=== PATIENT | male | born 1950 | race Caucasian/White ===

== ENCOUNTER → 2020-01-20 09:29 | Outpatient (BNVA) | payer MEDICARE, OTHER, SELFPAY | PROVIDERS: Family Provider Internal Medicine; PCP Internal Medicine; Visit Provider Urology | DX: R39.9 Unspecified symptoms and signs involving the genitourinary system (principal); R97.20 Elevated prostate specific antigen [PSA] | CPT/HCPCS: 81001; 84153 ==

== ENCOUNTER 2021-05-10 12:22 | Outpatient (RCR) | payer MEDICARE, OTHER, SELFPAY | END 2021-05-24 23:59 | disposition home or self-care (01) | LOC: SPT 12:22 | PROVIDERS: PCP Internal Medicine; Referring Provider Orthopaedic Surgery; Visit Provider Orthopaedic Surgery | DX: S46.091D Other injury of muscle(s) and tendon(s) of the rotator cuff of right shoulder, subsequent encounter (principal); X58.XXXD Exposure to other specified factors, subsequent encounter | CPT/HCPCS: 97110; 97161 ==

== ENCOUNTER 2021-05-25 06:00 | Outpatient (RCR) | payer MEDICARE, OTHER, SELFPAY | END 2021-06-21 23:59 | disposition home or self-care (01) | LOC: SPT 06:00 | PROVIDERS: PCP Internal Medicine; Referring Provider Orthopaedic Surgery; Visit Provider Orthopaedic Surgery | DX: S46.091D Other injury of muscle(s) and tendon(s) of the rotator cuff of right shoulder, subsequent encounter (principal); X58.XXXD Exposure to other specified factors, subsequent encounter | CPT/HCPCS: 97110; 97150 ==

== ENCOUNTER → 2021-06-21 13:42 | Outpatient (BNVA) | payer MEDICARE, OTHER, SELFPAY | PROVIDERS: PCP Internal Medicine; Visit Provider Urology | DX: R97.20 Elevated prostate specific antigen [PSA] (principal); R39.9 Unspecified symptoms and signs involving the genitourinary system | CPT/HCPCS: 81003; 84153 ==

== ENCOUNTER 2021-06-22 06:00 | Outpatient (RCR) | payer MEDICARE, OTHER, SELFPAY | END 2021-07-22 23:59 | disposition home or self-care (01) | LOC: SPT 06:00 | PROVIDERS: PCP Internal Medicine; Referring Provider Orthopaedic Surgery; Visit Provider Orthopaedic Surgery | DX: S46.091D Other injury of muscle(s) and tendon(s) of the rotator cuff of right shoulder, subsequent encounter (principal); X58.XXXD Exposure to other specified factors, subsequent encounter | CPT/HCPCS: 97110 ==

== ENCOUNTER 2021-09-23 16:03 | Outpatient (CLI) | payer MEDICARE, OTHER, SELFPAY ==
--- NOTE | 2021-09-23 | XR_ITS ---
WS: [id number] SACRUM TECHNIQUE: 3 views of the sacrum and coccyx CLINICAL INFORMATION: COCCYX PAIN COMPARISON: None. FINDINGS: Slight retrolisthesis L4 on L5 measuring 7 mm Grade 1 anterolisthesis L5 on S1 measuring 5 mm with chronic spondylolysis.. Moderate facet arthropat hy L4-L5 and L5-S1. Osteopenia. Pelvic phleboliths. Normal pubic rami. Mild degenerative arthritis ursula th hips. Mild degenerative arthritis both sacroiliac joints. Sacrum and coccyx slightly rotated on th e lateral view. Considering rotation sacrococcygeal junction appears normal. No acute appearing sacra l fractures. Soft tissue edema overlying the coccyx. If continued pain recommend CT for further evalu ation XR/XR sacrum coccyx min 2V [id number] IMPRESSION: Considering rotation sacrococcygeal junction appears normal. No acute appearing coccyx fractures. Soft tissue edema overlying the coccyx. If continued pain re commend CT for further evaluation.
== END 2021-09-23 16:04 | disposition home or self-care (01) ==
LOC: RADOUTREAD 16:07
PROVIDERS: PCP Internal Medicine; Visit Provider Nurse Practitioner
DX: M53.3 Sacrococcygeal disorders, not elsewhere classified (principal); M43.06 Spondylolysis, lumbar region
CPT/HCPCS: 72220

== ENCOUNTER 2022-01-03 11:04 | Outpatient (CLI) | payer MEDICARE, OTHER, SELFPAY | END 2022-01-03 11:05 | disposition home or self-care (01) | LOC: LAB 11:08 | PROVIDERS: PCP Internal Medicine; Visit Provider Urology | DX: R97.20 Elevated prostate specific antigen [PSA] (principal); N40.1 Benign prostatic hyperplasia with lower urinary tract symptoms; N13.8 Other obstructive and reflux uropathy; R39.9 Unspecified symptoms and signs involving the genitourinary system | CPT/HCPCS: 36415; 51741; 51798; 84153; 99213 ==

== ENCOUNTER → 2022-01-17 10:23 | Outpatient (BNVA) | payer MEDICARE, OTHER, SELFPAY | PROVIDERS: PCP Internal Medicine; Visit Provider Urology | DX: R39.9 Unspecified symptoms and signs involving the genitourinary system (principal); R97.20 Elevated prostate specific antigen [PSA]; N40.1 Benign prostatic hyperplasia with lower urinary tract symptoms; N13.8 Other obstructive and reflux uropathy | CPT/HCPCS: 81003 ==

== ENCOUNTER → 2022-02-09 07:33 | Outpatient (BNVA) | payer MEDICARE, OTHER, SELFPAY | PROVIDERS: PCP Internal Medicine; Visit Provider Otolaryngology | DX: H60.543 Acute eczematoid otitis externa, bilateral (principal) | CPT/HCPCS: 99203 ==

== ENCOUNTER 2023-11-11 06:10 | Inpatient (IN) | payer MEDICARE, SELFPAY ==
[2023-11-11] VITALS (41 sets, daily range): BP systolic 96–152; BP diastolic 63–94; PULSE 57–128; RESP 14–30; TEMP 36.4–37.2; O2SAT 90–98; BMI 33.0; BMI 34.4
--- NOTE | 2023-11-11 06:14 | XRR_ITS ---
PROCEDURE INFORMATION: Exam: XR Chest Exam date and time: 11/11/2023 6:29 AM Age: 73 years old Clinical indication: Dyspnea; Patient HX: Afib heartrate over 100 TECHNIQUE: Imaging protocol: Radiologic exam of the chest. Views: 1 view. COMPARISON: CR XR chest 2V* [id number] 03/05/2021 9:36 AM FINDINGS: Lungs: Unremarkable. No consolidation. Pleural spaces: Unremarkable. No pleural effusion. No pneumothorax. Heart/Mediastinum: Unremarkable. No cardiomegaly. Bones/joints: Unchanged mild scoliosis with mild and moderate multilevel spondylosis. XR/XR chest 1V portable [id number] IMPRESSION: No acute disease.
--- NOTE | 2023-11-11 06:14 | ECG_ITS ---
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 Measurements Intervals [place] Rate: 120 P: 0 TN: 0 QRS: -57 QRSD: 130 T: 86 QT: 363 QTc: 513 Interpretive Statements ATRIAL FIBRILLATION WITH RAPID VENTRICULAR RESPONSE LEFT AXIS DEVIATION [QRS AXIS < -30] MODERATE INTRAVENTRICULAR CONDUCTION DELAY [105+ ms QRS DURATION, 80+ ms Q/S IN V1/V2, NO Q AND 60+ ms R IN I/aVL/V5/V6] MODERATE VOLTAGE CRITERIA FOR LVH, CONSIDER NORMAL VARIANT [MEETS CRITERIA IN ONE OF: R(aVL), S(V1), R(V5), R(V5/V6)+S(V1)] NONSPECIFIC ST & T-WAVE ABNORMALITY No previous ECG available for comparison Electronically Signed On 11-11-2023 9:04:32 CDT by Thuan Valenzuela M.D. [id number]
[2023-11-11 06:27] LABS: Basophils % 0.6 %; Eosinophils # 0.2 10^3/uL (0.0-0.8); Eosinophils % 2.6 %; Hematocrit 46.2 % (37-53); Lymphocytes # 1.6 10^3/uL (0.8-4.8); Lymphocytes % 23.9 %; Mean Corpuscular HGB Conc 33.1 g/dL (30-55); Mean Corpuscular Hemoglobin 32.2 pg (27-33); Mean Corpuscular Volume 97.3 fl (82-101); Mean Platelet Volume 9.1 fL (7.4-10.4); Monocytes # 0.9 10^3/uL (0.2-0.9); Neutrophils # 3.84 10^3/uL (1.8-7.7); Neutrophils % 58.7 %; Nucleated Red Blood Cells % 0 %; Platelet Count 236 10^3/cmm (157-399); Red Blood Count 4.75 10^6/uL (3.85-5.65); Red Cell Distribution Width 12.1 % (12.1-15.1); White Blood Count 6.54 10^3/uL (3.29-11.43)
[2023-11-11] MEDS: dilTIAZem 100 MG in sodium chloride 0.9% (add-van) 100 ML IV (06:37)
[2023-11-11] MEDS: dilTIAZem 5 mg/mL SDV 5 mL 20 MG IVP (06:37)
[2023-11-11 06:46] LABS: Troponin(5th) Baseline 12 ng/L (0-15)
[2023-11-11 06:55] LABS: Alanine Aminotransferase 20 U/L (0-41); Albumin Level 4.1 g/dL (3.5-5.2); Alkaline Phosphatase 86 U/L (40-130); Anion Gap 16.1 (5-19); Aspartate Amino Transferase 19 U/L (0-40); Blood Urea Nitrogen 15 mg/dL (8-23); Calcium 9.3 mg/dL (8.5-10.5); Carbon Dioxide 26 mmol/L (22-29); Chloride 103 mmol/L (98-107); Creatinine Clr Calc Pharmacy 100.9734; Globulin 2.6 g/dL (1.3-4.6); Glucose 128 mg/dL (65-115); Osmolality Calculated 294 mOsm/kg (285-295); Potassium 4.1 mmol/L (3.5-5.1); Sodium 141 mmol/L (136-145); Thyroid Stimulating Hormone 3.89 uIU/mL (0.27-4.20); Total Bilirubin 0.4 mg/dL (0.15-1.2); Total Protein 6.7 g/dL (6.6-8.7)
--- NOTE | 2023-11-11 06:59 | ED_ITS ---
HPI - Arrhythmia/Palpitations 2 General: Chief Complaint: Arrhythmia/Palpitations Stated Complaint: irregular heatbeat, refer dr choudhury Time Seen by Provider: 11/11/23 06:13 History of Present Illness: 73-year-old male who [facility] with a rapid heart rate. Patient has a known history of atrial fibrillation has been relatively well- controlled and I took him off his Xarelto several years ago. He is on flecainide and metoprolol he does take the flecainide scheduled. He states that beginning last night his rate increased and has been persistent since then. He denies any chest pain. No orthopnea no shortness of breath Onset (ago): hour(s) Arrhythmia history: atrial fibrillation Treatments prior to arrival: beta-carlos and other (Flecainide) Review of Systems 2 Const: Denies: fever(s) or chills Card: Reports: palpitations, irregular heart rhythm and dyspnea on exertion; Denies: chest pain, edema, swelling of feet/ankles or orthopnea Resp: Denies: dyspnea GI: Denies: abdominal pain : Denies: dysuria, urinary frequency or urinary urgency Musc: Denies: neck pain or back pain Skin/Breast: Denies: rash PFSH ED 2 PFSH: Medical History Dyslipidemia BPH w urinary obs/LUTS Hypercholesteremia HTN (hypertension) A-fib Elevated PSA Lower urinary tract symptoms (LUTS) Surgical History H/O shoulder surgery right Hx of arthroscopy of knee Family History Father , AT AGE 56 CAD (coronary artery disease) Mother , AT AGE 72 BLOOD CLOT IN THE LUNGS Pneumonia Social History Smoking and tobacco/nicotine status: never used tobacco/nicotine Alcohol intake: never Substance/Drug Use: never Adopted: No Caregiver/support person: No Lives independently: No Household members: spouse Marital status: Current occupational status: retired Physical Exam 2 Const: COMMON NORMALS: no acute distress GENERAL APPEARANCE: cooperative and comfortable ORIENTATION/CONSCIOUSNESS: Yes awake, Yes oriented to person, Yes oriented to place and Yes oriented to time HENMT: COMMON NORMALS: normocephalic, atraumatic and hearing grossly normal bilaterally HEAD & SCALP: normocephalic and atraumatic Resp: COMMON NORMALS: normal respiratory effort, No retractions, No use of accessory muscles and clear to auscultation bilaterally AUSCULTATION: clear to auscultation bilaterally Cardio: COMMON NORMALS: No murmurs present (Cardio) RATE: tachycardic R HYTHM: abnormal rhythm irregularly irregular GI: COMMON NORMALS: Soft to palpation and No hepatosplenomegaly present A USCULTATION: Yes normoactive bowel sounds PALPATION: Yes Soft to palpation, No Tenderness to palpation present (GI), No Guarding due to palpation present (GI) and Yes No hepatosplenomegaly present Extremity: COMMON NORMALS: normal to inspection, capillary refill normal, no clubbing, cyanosis or edema, no calf tenderness and no pedal edema Neuro: SENSORIUM/ORIENTATION: Yes oriented to person, Yes oriented to place and Yes oriented to time Skin: COMMON NORMALS: no rashes or lesions noted GENERAL SKIN EXAM: no rashes or lesions noted Course 2 Vital Signs: Vital signs: Vital Signs Temperature 98.9 F 11/11/23 06:12 Pulse Rate 106 H 11/11/23 09:00 Respiratory Rate 17 11/11/23 07:30 Blood Pressure 142/94 11/11/23 09:00 Pulse Oximetry 94 11/11/23 09:00 Oxygen Delivery Me thod Room Air 11/11/23 09:43 MDM - Arrhythmia/Palpitations Medical Decision Making A-fib with RVR patient is been taking his regular medication he took his flecainide this morning. In the room his bottle states that he is on Toprol succinate. I gave him another 25 of tartrate for now. He is titrated up to 10 of Cardizem he is just under control and his rate is long as he does not attempt any activity. Discussed with hospitalist will admit continue Cardizem drip first dose of Lovenox given. Lab Data 11/11/23 06:22 11/11/23 06:22 Radiology Impressions Chest X-Ray 11/11/23 06:14 IMPRESSION: No acute disease. Laboratory Results WBC 6.54 10^3/uL (3.29-11.43) 11/11/23 06: RBC 4.75 10^6/uL (3.85-5.65) 11/11/23 06:22 Hgb 15.30 g/dL (11.27-16.99) 11/11/23 06:22 Hct 46.2 % (37-53) 11/11/23 06:22 MCV 97.3 fl (82-101) 11/11/23 06:22 MCH 32.2 pg (27-33) 11/11/23 06:22 MCHC 33.1 g/dL (30-55) 11/11/23 06:22 RDW 12.1 % (12.1-15.1) 11/11/23 06:22 Plt Count 236 10^3/cmm (157-399) 11/11/23 06:22 MPV 9.1 fL (7.4-10.4) 11/11/23 06:22 Neut % (Auto) 58.7 % 11/11/23 06:22 Lymph % (Auto) 23.9 % 11/11/23 06:22 [place] % (Auto) 13.0 % 11/11/23 06:22 Eos % (Auto) 2.6 % 11/11/23 06:22 Baso % (Auto) 0.6 % 11/11/23 06:22 Neut # (Auto) 3.84 10^3/uL (1.8-7.7) 11/11/23 06:22 Lymph # (Auto) 1.6 10^3/uL (0.8-4.8) 11/11/23 06:22 [place] # (Auto) 0.9 10^3/uL (0.2-0.9) 11/11/23 06:22 Eos # (Auto) 0.2 10^3/uL (0.0-0.8) 11/11/23 06:22 Baso # (Auto) 0.0 10^3/uL (0.0-0.1) 11/11/23 06:22 Nucleated RBC % (auto) 0 % 11/11/23 06:22 Nucleated RBCs # 0.0 /100WBC 11/11/23 06:22 Sodium 141 mmol/L (136-145) 11/11/23 06:22 Potassium 4.1 mmol/L (3.5-5.1) 11/11/23 06:22 Chloride 103 mmol/L (98-107) 11/11/23 06:22 Carbon Dioxide 26 mmol/L (22-29) 11/11/23 06:22 Anion Gap 16.1 (5-19) 11/11/23 06:22 BUN 15 mg/dL (8-23) 11/11/23 06:22 Creatinine 0.8 mg/dL (0.7-1.2) 11/11/23 06:22 GFR Calculation Not Reportable 11/11/23 06:22 Glucose 128 mg/dL (65-115) H 11/11/23 06:22 Calculated Osmolality 294 mOsm/kg (285-295) 11/11/23 06:22 Calcium 9.3 mg/dL (8.5-10.5) 11/11/23 06:22 Total Bilirubin 0.4 mg/dL (0.15-1.2) 11/11/23 06:22 AST 19 U/L (0-40) 11/11/23 06:22 ALT 20 U/L (0-41) 11/11/23 06:22 Alkaline Phosphatase 86 U/L (40-130) 11/11/23 06:22 Troponin T Baseline 12 ng/L (0-15) 11/11/23 06:22 Troponin T 120 Minute 10.65 ng/L (0-15) 11/11/23 08:23 Delta Troponin T -1.35 ABS# (0-10) L 11/11/23 08:23 Total Protein 6.7 g/dL (6.6-8.7) 11/11/23 06:22 Albumin 4.1 g/dL (3.5-5.2) 11/11/23 06:22 Globulin 2.6 g/dL (1.3-4.6) 11/11/23 06:22 TSH 3.89 uIU/mL (0.27-4.20) 11/11/23 06:22 All radiology interpretation(s) finalized by discharge Discharge Plan Discharge Patient Disposition: Admitted As Inpatient Admit Provider: Walt Barker Clinical Impression: Atrial fibrillation with RVR Condition: Stable Coding Level of Care Code ED [place] Operator for Chg [place]
--- NOTE | 2023-11-11 08:14 | ECG_ITS ---
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 Measurements Intervals [place] Rate: 107 P: 0 MD: 0 QRS: -63 QRSD: 132 T: 89 QT: 379 QTc: 506 Interpretive Statements ATRIAL FIBRILLATION WITH RAPID VENTRICULAR RESPONSE INTRAVENTRICULAR CONDUCTION DELAY [130+ ms QRS DURATION] MODERATE VOLTAGE CRITERIA FOR LVH, CONSIDER NORMAL VARIANT [MEETS CRITERIA IN ONE OF: R(aVL), S(V1), R(V5), R(V5/V6)+S(V1)] POSSIBLE ANTERIOR MYOCARDIAL INFARCTION , PROBABLY OLD [30 ms Q WAVE IN V3/V4, OR R < 0.2 mV IN V4] Compared to ECG 11/11/2023 06:32:36 Myocardial infarct finding now present Left-axis deviation no longer present T-wave abnormality no longer present Electronically Signed On 11-11-2023 9:07:32 CDT by Thuan Valenzuela M.D. [email or web address]/store/OM/[id number]
[2023-11-11 08:49] LABS: Troponin 5 2HR 10.65 ng/L (0-15)
[2023-11-11 09:00] LABS: Troponin 5 2HR Delta -1.35 ABS# (0-10)
[2023-11-11] MEDS: enoxaparin 100 mg/mL Syringe SUBCUT (09:02)
[2023-11-11] MEDS: metoprolol tartrate 25 mg Tablet PO (09:02)
--- NOTE | 2023-11-11 11:30 | P.HP_ITS ---
Providers/Chief Complaint 2 Admitting Physician: Walt Barker DO Primary Care Provider: Gurwinder Barnard DO Chief Complaint: irregular heatbeat, refer dr choudhury History of Present Illness Kwan Crisostomo is a 73 year old male with PMH of A-fib, BPH w/LUTS who presented to ER with rapid heart rate and palpitations. Previous history of well controlled A-fib currently on Flecainide, Metoprolol ER. He is established with Cardiology, Dr. Choudhury in [place]. Has been well controlled for several years. Cards removed him from anticoagulation due to his penitentiary stability. Recent past with few episodes of rapid HR that was short lived. He began to have another episode last night that persisted. He denies chest pain, but did endorse some mild dyspnea with his episode. He states that he did take his medications last night, but no improvement in his symptoms. Presented to ER to be evaluated. In ER, EKG did show Afib with RVR, HR into the 130's. Labs unremarkable aside from glucose of 128. Troponins were negative. CXR showed no acute concerns. Was started on Diltiazem drip and provided an additional dose of metoprolol this morning. Rate did improve to the 90-100 range. BP remained stable. Patient has requested Dr. Valenzuela come to see him and they will discuss starting anticoagulation. He was given a dose of Lovenox this morning in the ER. He was admitted to [facility] on telemetry. Review of Systems 2 General: Reports: 10 or more systems reviewed and unremarkable except in HPI and below Medications/Allergies Home Medications Medication Instructions Recorded Confirmed Last Taken Type aspirin 81 mg capsule 81 mg PO DAILY 11/11/23 11/11/23 11/10/23 18:00 History flecainide 100 mg tablet 100 mg PO Q12H 11/11/23 11/11/23 11/10/23 18:00 History metoprolol succinate 100 mg 50 mg PO DAILY 11/11/23 11/11/23 11/10/23 18:00 History tablet,extended release 24 hr Allergies Allergy/AdvReac Type Severity Reaction Status Date / Time Penicillins Allergy Unknown Unknown Verified 02/09/22 07:56 Sulfa (Sulfonamide Allergy Unknown Unknown Verified 02/09/22 07:56 Antibiotics) PFSH Acute 2 PFSH: Medical History Dyslipidemia BPH w urinary obs/LUTS Hypercholesteremia HTN (hypertension) A-fib Elevated PSA Lower urinary tract symptoms (LUTS) Surgical History H/O shoulder surgery right Hx of arthroscopy of knee Family History Father , AT AGE 56 CAD (coronary artery disease) Mother , AT AGE 72 BLOOD CLOT IN THE LUNGS Pneumonia Social History Smoking and tobacco/nicotine status: never used tobacco/nicotine Alcohol intake: never Substance/Drug Use: never Adopted: No Caregiver/support person: No Lives independently: No Household members: spouse Marital status: Current occupational status: retired Vitals/I&O/Wt Last Vital Signs Temp 98.9 F 11/11/23 06:12 Pulse 106 H 11/11/23 09:00 Resp 17 11/11/23 07:30 BP 142/94 11/11/23 09:00 Pulse Ox 94 11/11/23 09:00 O2 Del Method Room Air 11/11/23 09:43 11/10/23 11/11/23 11/11/23 22:59 06:59 14:59 Intake Total 42.792 / 42.792 Balance 42.792 / 42.792 Weight last 48 hrs Weight 240 lb Weight 230 lb Physical Exam 2 Narrative: General: Cooperative patient in no apparent distress. Well developed. HEENT: Normocephalic, Atraumatic. External ears normal. Nasal passages patent without drainage. MMM. Heart: Irregular rhythm with slight elevated HR. Resp: LCTA. No respiratory distress, no use of accessory muscles. Abd: Soft, non-tender. Non-distended. Extremities: No edema. Skin: No rash or lesions on exposed areas. Neuro: No focal motor or sensory loss. Gait is normal. Data 11/11/23 06:22 11/11/23 06:22 A&P Assessment and plan (1) Atrial fibrillation with RVR: (2) Hyperglycemia: Plan 73 y/o M admitted to [facility] for a-fib with RVR. Cardiology consulted at the request of the patient. Spoke with Dr. Valenzuela who will see the patient this afternoon. Started on Diltiazem drip. HR is currently improving, with rates in the 90-100 range. BP remains stable. Telemetry ordered and monitoring. Labs unremarkable. Troponins negative. Will continue with home metoprolol dose. Will continue Diltiazem drip for now and titrate to oral meds as HR and BP tolerate. Started on Lovenox this morning. He will likely need to resume chronic anticoagulation to reduce risk of VTE event. He will discuss with Cardiology this afternoon. Recheck AM labs. Cardiac diet ordered. He is on Metoprolol Succinate 50mg daily home med. Given additional 25mg this morning. Consider titration of metoprolol for rate control vs. Starting Diltiazem oral. Code Status: Full IVF: none DVT PPx: Lovenox GI PPx: None ABx: None Diet: Cardiac Discharge plan: Home when appropriate. Attestations 2 Medical Necessity Statement*: Patient will need greater than 2 midnight stay for A-fib with RVR, titration of medication to stabilize HR, possible addition of new medication requiring monitoring and restarting anticoagulation, requiring monitoring and labs. Coding Level of Care Code Acute Code for Chg Fwd Moderate MDM includes number and complexity of problems actively addressed during encounter, amount and/or complexity of data reviewed/ordered and described risk of complication, morbidity or mortality of management as documented Diagnoses Atrial fibrillation with RVR I48.91 Hyperglycemia R73.9
--- NOTE | 2023-11-11 12:14 | ECG_ITS ---
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 Measurements Intervals [place] Rate: 72 P: -17 AK: 206 QRS: -50 QRSD: 123 T: 76 QT: 446 QTc: 491 Interpretive Statements SINUS RHYTHM LEFT AXIS DEVIATION [QRS AXIS < -30] MODERATE INTRAVENTRICULAR CONDUCTION DELAY [105+ ms QRS DURATION, 80+ ms Q/S IN V1/V2, NO Q AND 60+ ms R IN I/aVL/V5/V6] MODERATE T-WAVE ABNORMALITY, CONSIDER ANTERIOR ISCHEMIA [-0.1+ mV T-WAVE IN V3/V4] Compared to ECG 11/11/2023 08:27:20 Left-axis deviation now present T-wave abnormality now present Possible ischemia now present Atrial fibrillation no longer present Myocardial infarct finding no longer present Electronically Signed On 11-12-2023 7:13:02 CDT by Thuan Valenzuela M.D. [id number]
[2023-11-11 12:43] LABS: Troponin 5 6HR 10.06 ng/L (0-15)
[2023-11-11 13:11] LABS: Troponin 5 6HR Delta -1.94 ng/L (0-12)
--- NOTE | 2023-11-11 13:44 | PC.NURSE ---
received pt into room 112-2 from er via stretcher at 0920.report received.pt is alert and awake and oriented x 4.denies pain at present.afib on monitor...hr low 100's.on cardizem drip at 12.5 mg/hr.oriented to room environment.instructed to notify staff for any chest pain,sob,or for any concern at all.pt verb understanding of instructions.
--- NOTE | 2023-11-11 13:46 | PC.NURSE ---
pt converted to nsr at 1115.heart rate 50's.cardizem drip turned off.
--- NOTE | 2023-11-11 16:17 | PM.CONSULT ---
Providers/Reason For Consult Consulting Physician/Specialty*: Cardiovascular medicine Reason for Consult*: Atrial fibrillation Requesting Physician: Hospitalist Attending Physician: Walt Barker DO Primary Care Provider: Gurwinder Barnard DO History of Present Illness History of Present Illness Kwan Crisostomo is a 73 year old male with a history of atrial fibrillation. He takes flecainide and metoprolol at home. For the last couple years he feels like he has been in sinus rhythm. So much so that a couple years ago he was taken off of his anticoagulant. This was in the form of Xarelto. In the last couple of weeks he has noticed some fluttering and then last night he noticed that his heart rate was fast and irregular. It lasted all night so he came into the emergency room early this morning. He was given a dose of p.o. beta-carlos and then placed on intravenous Cardizem. At about 1130 this morning he converted to sinus rhythm. His troponins are negative and his labs are negative. The third EKG at 1337 hrs. reveals sinus rhythm. He was given Lovenox this morning. He is interested in going home. Review of Systems Narrative: Review of systems is negative Medications/Allergies Home Medications Medication Instructions Recorded Confirmed Last Taken Type aspirin 81 mg capsule 81 mg PO DAILY 11/11/23 11/11/23 11/10/23 18:00 History flecainide 100 mg tablet 100 mg PO Q12H 11/11/23 11/11/23 11/10/23 18:00 History metoprolol succinate 100 mg 50 mg PO DAILY 11/11/23 11/11/23 11/10/23 18:00 History tablet,extended release 24 hr Allergies Allergy/AdvReac Type Severity Reaction Status Date / Time Penicillins Allergy Unknown Unknown Verified 02/09/22 07:56 Sulfa (Sulfonamide Allergy Unknown Unknown Verified 02/09/22 07:56 Antibiotics) Current Medications Generic Name Dose Route Start Last Admin Trade Name Freq PRN Reason Stop Dose Admin Diltiazem HCl 100 mg/ Sodium 100 mls @ 0 mls/hr 11/11/23 06:30 11/11/23 11:15 Chloride IV 0 mg/hr .Q0M VIVEK 0 mls/hr Titration Protocol Per Protocol PFSH Acute PFSH: Medical History (Updated 11/11/23 @ 16:20 by Thuan aVlenzuela MD) Dyslipidemia BPH w urinary obs/LUTS Hypercholesteremia HTN (hypertension) A-fib Elevated PSA Lower urinary tract symptoms (LUTS) Surgical History H/O shoulder surgery right Hx of arthroscopy of knee Family History Father , AT AGE 56 CAD (coronary artery disease) Mother , AT AGE 72 BLOOD CLOT IN THE LUNGS Pneumonia Social History Smoking and tobacco/nicotine status: never used tobacco/nicotine Alcohol intake: never Substance/Drug Use: never Adopted: No Caregiver/support person: No Lives independently: No Household members: spouse Marital status: Current occupational status: retired Vitals/I&O/Wt Last Vital Signs Temp 98.9 F 11/11/23 06:12 Pulse 73 11/11/23 13:40 Resp 18 11/11/23 13:40 BP 99/63 11/11/23 13:40 Pulse Ox 93 11/11/23 13:40 O2 Del Method Room Air 11/11/23 12:00 11/11/23 11/11/23 11/11/23 06:59 14:59 22:59 Intake Total 42.792 / 42.792 Output Total 250 / 250 Balance -207.208 / -207.208 Weight last 48 hrs Weight 240 lb Weight 230 lb Physical Exam Narrative: GENERAL: In general he looks comfortable HEENT: Exam within normal limits. NECK: Supple without jugular vein distention. The carotid upstroke is normal without bruits. BACK: Exam normal. LUNGS: Clear. HEART: Regular rate and rhythm. ABDOMEN: Benign without organomegaly or tenderness. EXTREMITIES: No edema. NEUROLOGIC: Exam normal. SKIN: Unremarkable. Data 11/11/23 06:22 11/11/23 06:22 A&P Assessment and plan (1) Atrial fibrillation with RVR: (2) BPH w urinary obs/LUTS: (3) Dyslipidemia: (4) HTN (hypertension): Plan He is back in sinus rhythm. I had a long discussion with the patient and his about anticoagulants and about antiarrhythmics. He has chosen to stay on the flecainide and the beta-carlos at the same doses. I strongly recommended he go back to a factor Xa inhibitor. He wants to just go back to the Xarelto. I recommend 20 mg daily. I think we can give him another dose of Lovenox before he goes home this evening and then start him back on Xarelto 20 mg daily. Since it is the weekend we should give him 2 or 3 tablets until he can get to a pharmacy first part of the week. He does have an travel freight and passenger agent in [place] with whom he will follow-up. Consult Attestations Medical Necessity Statement: Hospitalization for atrial fibrillation with a rapid ventricular response now resolved. Discharge home. and Moderate Time for a total of 35 minutes, includes reviewing past or interval history, examining/interviewing patient, counseling patient/family/other support, updating patient/family/other support, discussing plan of care with staff, communicating with other healthcare providers and documenting encounter Diagnoses Atrial fibrillation with RVR I48.91 BPH w urinary obs/LUTS N40.1; N13.8 Dyslipidemia E78.5 HTN (hypertension) I10
--- NOTE | 2023-11-11 17:13 | P.SS_ITS ---
Short Stay Summary Providers Date of Admit/Discharge: 11/11/23 Attending Provider: Walt Barker DO Primary Care Provider: Gurwinder Barnard DO Chief Complaint: irregular heatbeat, refer dr choudhury HPI History of Present Illness Kwan Crisostomo is a 73 year old male with PMH of A-fib, BPH w/LUTS who presented to ER with rapid heart rate and palpitations. Previous history of well controlled A-fib currently on Flecainide, Metoprolol ER. He is established with Cardiology, Dr. Choudhury in [place]. Has been well controlled for several years. 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 Recent past with few episodes of rapid HR that was short lived. He began to have another episode last night that persisted. He denies chest pain, but did endorse some mild dyspnea with his episode. He states that he did take his medications last night, but no improvement in his symptoms. Presented to ER to be evaluated. In ER, EKG did show Afib with RVR, HR into the 130's. Labs unremarkable aside from glucose of 128. Troponins were negative. CXR showed no acute concerns. Was started on Diltiazem drip and provided an additional dose of metoprolol this morning. Rate did improve to the 90-100 range. BP remained stable. Review of Systems General: Reports: 10 or more systems reviewed and unremarkable except in HPI and below Home Meds/Allergies Home Medications and Allergies Home Medications Medication Instructions Recorded Confirmed Type aspirin 81 mg capsule 81 mg PO DAILY 11/11/23 11/11/23 History flecainide 100 mg tablet 100 mg PO Q12H 11/11/23 11/11/23 History metoprolol succinate 100 mg 50 mg PO DAILY 11/11/23 11/11/23 History tablet,extended release 24 hr Allergies Allergy/AdvReac Type Severity Reaction Status Date / Time Penicillins Allergy Unknown Unknown Verified 02/09/22 07:56 Sulfa (Sulfonamide Allergy Unknown Unknown Verified 02/09/22 07:56 Antibiotics) PFSH Acute PFSH: Medical History (Updated 11/11/23 @ 16:20 by Thuan Valenzuela MD) Dyslipidemia BPH w urinary obs/LUTS Hypercholesteremia HTN (hypertension) A-fib Elevated PSA Lower urinary tract symptoms (LUTS) Surgical History H/O shoulder surgery right Hx of arthroscopy of knee Family History Father , AT AGE 56 CAD (coronary artery disease) Mother , AT AGE 72 BLOOD CLOT IN THE LUNGS Pneumonia Social History Smoking and tobacco/nicotine status: never used tobacco/nicotine Alcohol intake: never Substance/Drug Use: never Adopted: No Caregiver/support person: No Lives independently: No Household members: spouse Marital status: Current occupational status: retired Vitals/I&O/Wt Last Vital Signs Temp 98.0 F 11/11/23 16:00 Pulse 73 11/11/23 16:00 Resp 23 H 11/11/23 16:00 BP 118/71 11/11/23 16:00 Pulse Ox 93 11/11/23 13:40 O2 Del Method Room Air 11/11/23 12:00 11/11/23 11/11/23 11/11/23 06:59 14:59 22:59 Intake Total 42.792 / 42.792 Output Total 250 / 250 Balance -207.208 / -207.208 Weight last 48 hrs Weight 240 lb Weight 230 lb Physical Exam Narrative: General: Cooperative patient in no apparent distress. Well developed. HEENT: Normocephalic, Atraumatic. External ears normal. Nasal passages patent without drainage. MMM. Heart: Irregular rhythm with slight elevated HR. Resp: LCTA. No respiratory distress, no use of accessory muscles. Abd: Soft, non-tender. Non-distended. Extremities: No edema. Skin: No rash or lesions on exposed areas. Neuro: No focal motor or sensory loss. Gait is normal. Hospital Course Hospital Course Started on Diltiazem drip. cardiology consulted. Converted to NSR around 1100 today. Diltiazem discontinued and his rhythm remained stable through the rest of his hospital stay. Cards recommended continuing current medications but restarting xarelto for anticoagulation. Given 2nd dose of Lovenox today and will start Xarelto bridging. Advised to continue Xarelto and follow up with his Cardiology as soon as possible. He is agreeable to discharge this evening once he has received his evening medicaitons. SSS Data Data Completed and Pending: Completed Studies During Hospitalization Category Date Time Status XR chest 1V yaniv ble [id number] Stat Exams 11/11/23 06:14 Completed Pending at discharge Category Date Time Status Comprehensive Met abolic Panel AM LA BS Lab 11/12/23 04:00 Ordered Hemoglobin A1C AM LABS Lab 11/12/23 04:00 Ordered Magnesium AM LABS Lab 11/12/23 04:00 Ordered Diagnoses at Discharge Discharge Diagnosis (1) Atrial fibrillation with RVR: Status: Acute (2) BPH w urinary obs/LUTS: Status: Acute (3) Dyslipidemia: Status: Acute (4) HTN (hypertension): Status: Acute Discharge Plan Discharge Patient Disposition: Home Condition: Stable Prescriptions: New Xarelto 20 mg tablet 20 mg PO DAILY Qty: 30 2RF Rx Instructions: must administer with evening meal Continued aspirin 81 mg Capsule 81 mg PO DAILY flecainide 100 mg Tablet 100 mg PO Q12H metoprolol succinate 100 mg Tablet Extended Release 24 Hr 50 mg PO DAILY Discharge Orders: Discharge Order (Routine); Ordered 11/11/23 Ordered By: Walt Barker Referrals: Ibeth Choudhury MD [Referring] - (Please call Dr. Choudhury's Office on Monday at [phone] to schedule a follow up appointment. Thank you.) Gurwinder Barnard DO [Primary Care Provider] - (Please call Dr. Barnard's Office on Monday at [phone] to schedule a follow up appointment. Thank you.) Patient Instructions: Rivaroxaban (By mouth) (Xarelto, Xarelto Starter Pack), A-fib (Atrial Fibrillation) (DC), Opioid Safety Attestations Medical Necessity Statement*: Discharge this evening. Time Spent in Patient Care*: less than 30 min Specific Discharge Activities: Specific discharge activities: educating patient, educating and/or supporting family/caregiver, discussing with pcp/other providers, documenting/other paperwork and evaluating patient/reviewing data Quality Metrics Clinical Quality Measures: [ No reported AMI, CVA or VTE this stay ] Coding Level of Care Code Acute Code for Chg Fwd Moderate MDM includes number and complexity of problems actively addressed during encounter, amount and/or complexity of data reviewed/ordered and described risk of complication, morbidity or mortality of management as documented Diagnoses Atrial fibrillation with RVR I48.91 BPH w urinary obs/LUTS N40.1; N13.8 Dyslipidemia E78.5 HTN (hypertension) I10
[2023-11-11] MEDS: METOPROLOL SUCCINATE 50 MG PO (18:03)
[2023-11-11] MEDS: FLECAINIDE 100 MG PO (18:03)
[2023-11-11] MEDS: enoxaparin 120 mg/0.8 mL Syringe 110 MG SUBCUT (20:04)
--- NOTE | 2023-11-11 20:10 | PC.NURSE ---
lovenox administered, IV removed intact, patient declined wheelchair, no further needs, ambulatory out with
== END 2023-11-11 20:12 | disposition home or self-care (01) | DRG 310 ==
LOC: ER 07:01 → CSU 08:52
PROVIDERS: Admitting Provider Family Medicine; Emergency Provider Family Medicine; PCP Internal Medicine; Visit Provider Family Medicine
DX: I48.20 Chronic atrial fibrillation, unspecified (principal); I10 Essential (primary) hypertension; Z79.82 Long term (current) use of aspirin; R73.9 Hyperglycemia, unspecified
CPT/HCPCS: 36415; 71045; 80053; 84443; 84484; 85025; 93005; 96365; 96372; 96375; 99285; J1650; J3490

== ENCOUNTER → 2024-12-03 19:06 | Outpatient (BNVA) | payer MEDICARE, OTHER, SELFPAY | PROVIDERS: PCP Internal Medicine; Visit Provider Nurse Practitioner | DX: R39.9 Unspecified symptoms and signs involving the genitourinary system (principal) | CPT/HCPCS: 81000; 87086 ==

== ENCOUNTER → 2025-02-17 08:40 | Outpatient (BNVA) | payer MEDICARE, OTHER, SELFPAY | PROVIDERS: PCP Internal Medicine; Visit Provider Podiatrist Foot & Ankle Surgery | DX: M79.675 Pain in left toe(s) (principal); M25.572 Pain in left ankle and joints of left foot; M76.822 Posterior tibial tendinitis, left leg | CPT/HCPCS: 73610; 73630; 99204 ==

== ENCOUNTER → 2025-04-01 09:21 | Outpatient (BNVA) | payer MEDICARE, OTHER, SELFPAY | PROVIDERS: PCP Internal Medicine; Visit Provider Podiatrist Foot & Ankle Surgery | DX: M76.822 Posterior tibial tendinitis, left leg (principal); M25.372 Other instability, left ankle | CPT/HCPCS: 99213 ==